=== PATIENT | female | born 1955 | race Two or more races ===

== ENCOUNTER 2023-06-13 14:52 | Emergency (ER) | payer MEDICARE, OTHER ==
[~2023-06-13] VITALS: Ht 157.5 cm; Wt 63.5 kg
[2023-06-13 15:17] VITALS: TEMP 98.5
[2023-06-13] MEDS ORDERED: ALBUTEROL FS 2.5 MG/3 ML VIAL.NEB ONE ×2 (15:27→17:42)
[2023-06-13] MEDS ORDERED: methylPREDNISolone SOD SUCC 125 MG/2ML VIAL ONE (15:28)
[2023-06-13] MEDS ORDERED: IPRATROPIUM NEB FS 0.5 MG/2.5 ML AMPUL.NEB ONE (15:28)
[2023-06-13] MEDS ORDERED: ALBUTEROL FS 2.5 MG/3 ML VIAL.NEB CONTNEB ONE (15:30)
[2023-06-13] MEDS ORDERED: IPRATROPIUM NEB FS 0.5 MG/2.5 ML AMPUL.NEB NEB ONE (15:30)
[2023-06-13] MEDS ORDERED: methylPREDNISolone SOD SUCC 125 MG/2ML VIAL IV ONE (15:30)
[2023-06-13 15:38] VITALS: O2SAT 96
[2023-06-13 15:50] LABS: BASOPHILS # (AUTO) 0.1 K/uL (0.0-0.2); BASOPHILS % (AUTO) 0.8 % (0.0-2.0); EOSINOPHILS # (AUTO) 0.2 K/uL (0.0-0.7); EOSINOPHILS % (AUTO) 3.7 % (0.0-6.0); HEMATOCRIT 38 % (33-45); HEMOGLOBIN 12.8 g/dL (11.5-14.8); LYMPHOCYTES # (AUTO) 2.5 K/uL (0.8-4.8); LYMPHOCYTES % (AUTO) 39.6 % (20.0-44.0); MEAN CORPUSCULAR HEMOGLOBIN 29 PG (26.0-33.0); MEAN CORPUSCULAR HGB CONC 33 g/dl (31.0-36.0); MEAN CORPUSCULAR VOLUME 87 fL (82-100); MONOCYTES # (AUTO) 0.4 K/uL (0.1-1.30); NEUTROPHILS # (AUTO) 3.1 K/uL (1.8-8.9); NEUTROPHILS % (AUTO) 48.9 % (43.0-81.0); PLATELET COUNT (AUTO) 351 K/uL (150-450); RED BLOOD CELL COUNT(AUTO) 4.42 MIL/uL (4.0-5.2); RED CELL DISTRIBUTION WIDTH 13.6 % (11.5-15.0); WHITE BLOOD COUNT (AUTO) 6.4 K/uL (4.3-11.0)
[2023-06-13 16:13] LABS: CALCIUM, SERUM 9.7 mg/dL (8.5-10.1); CARBON DIOXIDE 30 mmol/L (21-32); CHLORIDE 103 mmol/L (98-107); CREATININE 0.7 mg/dL (0.6-1.3); GLUCOSE 126 mg/dL (74-106); POTASSIUM 2.9 mmol/L (3.5-5.1); SODIUM SERUM 137 mmol/L (136-145); UREA NITROGEN, BLOOD 14 mg/dL (7-18)
[2023-06-13 16:19] LABS: ALANINE AMINOTRANSFERASE 61 U/L (12-78); ALBUMIN 3.8 g/dL (3.4-5.0); ALKALINE PHOSPHATASE 100 U/L (46-116); ASPARTATE AMINOTRANSFERASE 31 U/L (15-37); BILIRUBIN,DIRECT 0.1 mg/dL (0.0-0.2); BILIRUBIN,TOTAL 0.4 mg/dL (0.2-1.0); TOTAL PROTEIN, SERUM 7.6 g/dL (6.4-8.2)
[2023-06-13 16:22] VITALS: O2SAT 99
[2023-06-13] MEDS ORDERED: POTASSIUM CHLORIDE 20 MEQ POWDER PACKET PO ONE (16:30)
[2023-06-13] MEDS ORDERED: POTASSIUM CHLORIDE 20 MEQ POWDER PACKET ONE (16:38)
[2023-06-13] MEDS ORDERED: ALBUTEROL FS 2.5 MG/3 ML VIAL.NEB NEB ONE (17:30)
[2023-06-13] MEDS ORDERED: Magnesium 1GM/D5W 100ML PREMIX 200 ML IV ONE ×2 (17:30→17:32)
[2023-06-13] MEDS ORDERED: LATA7.5D EACHEYE (17:35)
[2023-06-13] MEDS ORDERED: TYLENOL COD PO (17:35)
[2023-06-13] MEDS ORDERED: ALBU8.5H8 IH (17:35)
[2023-06-13] MEDS ORDERED: HYDR25TA4 PO (17:35)
[2023-06-13] MEDS ORDERED: AMLO10TA4 PO (17:35)
[2023-06-13] MEDS ORDERED: LEVO25TA7 PO (17:35)
[2023-06-13] MEDS ORDERED: ALPR1TAB7 PO (17:35)
[2023-06-13] MEDS ORDERED: AMOX1TAB15 PO (17:35)
[2023-06-13] MEDS ORDERED: [UNRECOGNIZED DRUG - OTHER] PO (17:35)
[2023-06-13] MEDS ORDERED: ATOR40TA PO (17:35)
[2023-06-13] MEDS ORDERED: CETI10TA14 PO (17:35)
[2023-06-13] MEDS ORDERED: ALBU2.5V38 IH (17:35)
[2023-06-13 17:40] VITALS: O2SAT 96
[2023-06-13 17:52] VITALS: O2SAT 99
[2023-06-13 20:00] VITALS: BP 129/81; O2SAT 96
== END 2023-06-13 21:40 | disposition short-term general hospital (02) ==
LOC: ER 14:56
DX: J45.909 Unspecified asthma, uncomplicated (principal); I10 Essential (primary) hypertension; E11.9 Type 2 diabetes mellitus without complications; Z20.822 Contact with and (suspected) exposure to COVID-19
CPT/HCPCS: 99291; 96365; 71045; 96366; 96375; 87426; 93005; 87804 ×2; 85025; 80048; 80076; 36415; 87420; 84484; 83880; 94640 ×2; J2930; J3475; C9803